=== PATIENT | female | born 1990 | race Caucasian/White ===

== ENCOUNTER 2024-07-27 02:30 | Inpatient (IN) | payer BC, SELFPAY ==
[2024-07-27 02:49] VITALS: BP 123/70; BMI 24.3
[2024-07-27] MEDS: LR 1000 IV (02:53)
[2024-07-27] MEDS: PENICILLIN 110 UNITS IV (03:02)
[2024-07-27 03:19] LABS: % Basophils 0.4 % (0-2); % Eosinophils 0.6 % (0-6); % Immature Granulocytes 0.6 % (0-0.5); % Lymphocytes 9.7 % (20.5-51.1); % Neutrophils 84.7 % (42.2-75.2); Absolute Basophils 0.1 10^3/uL (0-0.2); Absolute Eosinophils 0.1 10^3/uL (0-0.7); Absolute Immature Granulocytes 0.1 10^3/uL (0-0.05); Absolute Lymphocytes 1.4 10^3/uL (1.2-3.4); Absolute Monocytes 0.6 10^3/uL (0.1-0.6); Hematocrit 39.7 % (37.0-47.0); Hemoglobin 14.3 g/dL (12.0-16.0); Mean Corpuscular Volume 88.8 fL (81.0-99.0); Nucleated Red Blood Cells % 0 %; Platelet Count 224 10^3/uL (130-400); Red Blood Cell Count 4.47 10^6/uL (4.20-5.40); Red Cell Dist. Width 13.2 % (11.5-14.5); White Blood Cell Count 14.2 10^3/uL (4.8-10.8)
[2024-07-27] MEDS: PITOCIN 30 UNITS/NSS 500 ML IV (04:05)
[2024-07-27] MEDS: TYLENOL 650 MG PO (04:54)
[2024-07-27] MEDS: MOTRIN 600 MG PO (06:42)
[2024-07-28 05:15] LABS: Hematocrit 35.5 % (37.0-47.0); Hemoglobin 12.3 g/dL (12.0-16.0)
[2024-07-28 17:47] LABS: Syphilis/T. pallidum Ab Reflex Negative (Negative)
[2024-07-29] MEDS: M-M-R II 0.5 ML SC (11:01)
== END 2024-07-29 12:13 | disposition home or self-care (01) | DRG 807 ==
LOC: LDRP 02:30
PROVIDERS: ADMITTING PHYSICIAN Obstetrics & Gynecology; FAMILY PHYSICIAN Internal Medicine
PROC: 10907ZC Drainage of Amniotic Fluid, Therapeutic from Products of Conception, Via Natural or Artificial Opening (ICD-10-PCS; 2024-07-27)
PROC: 10E0XZZ Delivery of Products of Conception, External Approach (ICD-10-PCS; 2024-07-27)
DX: O99.824 Streptococcus B carrier state complicating childbirth (principal); Z37.0 Single live birth; O48.0 Post-term pregnancy; Z3A.40 40 weeks gestation of pregnancy
CPT/HCPCS: 85014; 85018; 85025; 86780; 86850; 86900; 86901; 90707